=== PATIENT | female | born 1990 | race Caucasian/White ===

== ENCOUNTER → 2023-12-03 | Emergency (ER) | payer SELFPAY ==
[~2023-12-03] MED LIST: DIPHENHYDRAMINE 25 MG TAB/CAP ONE
--- NOTE | 2023-12-03 13:14 | EDPHYS ---
Physician Documentation [facility] Name: Pham Min Age: 33 yrs Sex: Female : 1990 Arrival Date: 12/03/2023 Time: 12:46 Bed IW2 Private MD: ED Physician Dwain Frost HPI: 12/02 12:58 This 33 yrs old Female presents to ER via Unassigned with complaints of Insect Bite. kb 12:58 Pt is a 33 year old female who presents for an insect bite to left low back that kb occurred yesterday. States she started asking people what may have caused it and then her heart started racing. Denies chest pain, shortness of breath. Denies fever. . 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 - Social history:: Smoking status: Patient denies any tobacco usage or history of. ROS: 12:58 Constitutional: As per HPI kb Exam: 12:58 Constitutional: This is a well developed, well nourished patient who is awake, alert, kb and in no acute distress. Head/Face: Normocephalic, atraumatic. ENT: Moist Mucous membranes Cardiovascular: Regular rate Respiratory: Respirations even and unlabored. No increased work of breathing. Talking in full sentences MS/ Extremity: Pulses equal, no cyanosis. Neurovascular intact. Full, normal range of motion. Neuro: Awake and alert, GCS 15, oriented to person, place, time, and situation. Moves all extremities. Normal gait. 12:58 Skin: apparent insect bite to left low back with surrounding mild erythema and swelling. 13:06 Constitutional: The patient appears anxious, kb 13:13 ECG was reviewed by the Attending Physician. kb Vital Signs: 12:55 BP 94 / 66; Pulse 86; Resp 16; Temp 97.9; Pulse Ox 100% on R/A; Pain 10/10; hb 12:55 Pain Scale: Adult hb MDM: 12:49 Patient medically screened. anthony 12:58 Data reviewed: vital signs, nurses notes. kb 13:00 Differential diagnosis: abscess, allergic reaction, cellulitis, insect bite. kb 13:00 Historians other than the Patient: EMS: [facility]. Counseling: I had a detailed kb discussion with the patient and/or guardian regarding the historical points, exam findings, and any diagnostic results supporting the discharge/admit diagnosis, the need for outpatient follow up, a family practitioner, to return to the emergency department if symptoms worsen or persist or if there are any questions or concerns that arise at home. 12/02 13:00 Order name: EKG; Complete Time: 13:00 kb 12/02 13:00 Order name: EKG - Nurse/Tech; Complete Time: 13:14 kb 12/02 13:31 Order name: IV Start; Complete Time: 13:33 kb EC:13 Rate is 74 beats/min. Rhythm is regular. QRS [place] is Normal. VT interval is normal at kb 152 msec. QRS interval is normal at 124 msec. QT interval is normal at 446 msec. Administered Medications: 13:13 Drug: diphenhydrAMINE PO 25 mg PO once Route: PO; hb 14:10 Follow up: Response: Medication administered at discharge. hb 13:33 CANCELLED (Duplicate Order): ns 0.9% 1000 ml IV at 1000 ml once kb Disposition Summary: 12/03/23 13:33 Discharge Ordered Notes: Location: Home(12/03/23 13:33) kb Condition: Stable(12/03/23 13:33) kb Diagnosis - Insect bite (nonvenomous) of lower back and pelvis - left low back(12/03/23 13:33) kb Followup: kb - With: Emergency Department - When: As needed - Reason: Worsening of condition Followup: kb - With: Private Physician - When: 2 - 3 days - Reason: Recheck today's complaints, Continuance of care, Re-evaluation by your physician Discharge Instructions: - Discharge Summary Sheet kb - Insect Bite, Adult, [id number] kb Forms: - Medication Reconciliation Form kb - Thank You Letter kb - Antibiotic Education kb - Prescription Opioid Use kb - Patient Portal Instructions kb - Leadership Thank You Letter kb Prescriptions: - Cephalexin 500 mg Oral Capsule - take 1 capsule ORAL route every 8 hours for 10 days; 30 capsule; Refills: 0, kb Product Selection Permitted Signatures: Dispatcher [employer] EDRicha Mcgill, LINING SETTER-C LINING SETTER-Dwain Crook MD MD cha Baxter, Heather, RN RN hb Corrections: (The following items were deleted from the chart) 13: 13:14 Home kb kb 13:31 13:14 Stable kb kb 13:31 13:14 Insect bite (nonvenomous) of lower back and pelvis - left low back kb kb 13:33 13:31 NS 0.9% IV 1000 ml IV at 1000 ml once ordered. kb kb
--- NOTE | 2023-12-03 13:14 | ER ---
Nurse's Notes [facility] Name: Pham Min Age: 33 yrs Sex: Female : 1990 Arrival Date: 12/03/2023 Time: 12:46 Bed IW2 Private MD: Diagnosis: Insect bite (nonvenomous) of lower back and pelvis-left low back Presentation: 12/02 12:55 Chief complaint: EMS states: Toned out for racing heart after insect bite on left hip. hb Coronavirus screen: At this time, the client does not indicate any symptoms associated with coronavirus-19. Ebola Screen: No symptoms or risks identified at this time. Initial Sepsis Screen: Does the patient meet any 2 criteria? No. Patient's initial sepsis screen is negative. Does the patient have a suspected source of infection? No. Patient's initial sepsis screen is negative. Risk Assessment: Do you want to hurt yourself or someone else? Patient reports no desire to harm self or others. Onset of symptoms was December 03, 2023. 12:55 Method Of Arrival: EMS: [facility] 12:55 Acuity: SOWMYA 4 hb Triage Assessment: 12:59 Bite description: bite sustained to left lower back by unknown insect, animal hb information:. General: Appears in no apparent distress. Behavior is calm, cooperative. Pain: Pain currently is 10 out of 10 on a pain scale. Noted to be NAD. Neuro: Level of Consciousness is awake, alert, obeys commands, Oriented to person, place, time, situation. Cardiovascular: Patient's skin is warm and dry. Respiratory: Respiratory effort is even, unlabored, Respiratory pattern is regular, symmetrical. Derm: insect bit noted to left hip, redness and mild swelling. 13:15 Bite description: animal information: vaccination(s) is not applicable. 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 - Social history:: Smoking status: Patient denies any tobacco usage or history of. Screenin:15 [facility] ED Fall Risk Assessment (Adult) History of falling in the last 3 months, hb including since admission No falls in past 3 months (0 pts) Confusion or Disorientation No (0 pts) Intoxicated or Sedated No (0 pts) Impaired Gait No (0 pts) Mobility Assist Device Used No (0 pt) Altered Elimination No (0 pt) Score/Fall Risk Level 0 - 2 = Low Risk Oriented to surroundings, Maintained a safe environment, Educated pt \T\ family on fall prevention, incl call for assistance when getting out of bed. Abuse screen: Denies threats or abuse. Denies injuries from another. Nutritional screening: No deficits noted. Tuberculosis screening: No symptoms or risk factors identified. Assessment: 12:59 General: See triage assessment . Derm: Skin is healthy with good turgor, Skin is pink, hb warm \T\ dry. insect bit noted to left hip, reddened and mildly swollen. 13:25 Reassessment: IV/CT/blood work cancelled. hb Vital Signs: 12:55 BP 94 / 66; Pulse 86; Resp 16; Temp 97.9; Pulse Ox 100% on R/A; Pain 10/10; hb 12:55 Pain Scale: Adult hb ED Course: 12:48 Patient arrived in ED. rg4 12:49 Dwain Frost MD is Attending Physician. anthony 12:54 [facility]aceres [facility]-C [facility] kb 12:58 Triage completed. hb 12:59 Arm band placed on. hb 13:10 EKG done, by ED staff, reviewed by Richa RODRIGUEZ. hb 13:32 Patient has correct armband on for positive identification. Provided Education on: hb medications, wound care. 13:32 No provider procedures requiring assistance completed. Patient did not have IV access hb during this emergency room visit. 13:42 Nisha Rene, RN is Primary Nurse. hb Administered Medications: 13:13 Drug: diphenhydrAMINE PO 25 mg PO once Route: PO; hb 14:10 Follow up: Response: Medication administered at discharge. hb 13:33 CANCELLED (Duplicate Order): ns 0.9% 1000 ml IV at 1000 ml once kb Medication: 13:15 VIS not applicable for this client. hb Outcome: 13:14 Discharge ordered by MD. kb 13:33 Discharge ordered by . arturo 13:35 Discharged to home ambulatory, with significant other, hb 13:35 Condition: stable 13:35 Discharge instructions given to patient, significant other, Instructed on discharge instructions, follow up and referral plans. medication usage, wound care, Demonstrated understanding of instructions, follow-up care, medications, wound care, Prescriptions given X 1, 13:42 Patient left the ED. hb Signatures: Richa Caceres, ENT NURSE-C ENT NURSE-Ckb Dwain Frost MD MD cha Baxter, Heather, ZACHARY RN Re Spencer [id number]
[2023-12-03 13:55] VITALS: BP 94/66; TEMP 97.9; O2SAT 100
== END ==
LOC: ER 12:46
DX: S30.860A Insect bite (nonvenomous) of lower back and pelvis, initial encounter (principal)
CPT/HCPCS: 93005